=== PATIENT | female | born 1985 | race Caucasian/White ===

== ENCOUNTER 2019-12-08 00:45 | Inpatient (IN) | payer BC ==
[2019-12-08] MEDS ORDERED: CARBOPROST TROMETHAMINE 250 MCG/ML 1 ML AMP IM PRN (01:16)
[2019-12-08] MEDS ORDERED: TERBUTALINE 1 MG/ML VIAL SQ PRN (01:16)
[2019-12-08] MEDS ORDERED: LIDOCAINE 0.5% (PF) 5 MG/ML (50 ML SDV) SQ PRN (01:16)
[2019-12-08] MEDS ORDERED: METHYLERGONOVINE 0.2 MG/ML 1 ML AMP IM PRN (01:16)
[2019-12-08] MEDS ORDERED: OXYTOCIN 10 UNIT/ML 1 ML VIAL IM PRN (01:16)
[2019-12-08] MEDS: LACTATED RINGERS 1,000 ML IV SCH (01:36)
[2019-12-08 01:39] LABS: Basophils % (A) 0 %; Eosinophils # (A) 0.2 k/uL (0-0.7); Eosinophils % (A) 2 %; HCT 37.1 % (34.0-46.0); HGB 12.5 gm/dL (11.4-16.0); Lymphocytes # (A) 1.9 k/uL (1.0-4.8); Lymphocytes % (A) 21 %; MCH 31.8 pg (25.0-35.0); MCHC 33.6 g/dL (31.0-37.0); MCV 94.5 fL (80.0-100.0); Mean Platelet Volume 9.8; Monocytes # (A) 0.4 k/uL (0-1.0); Monocytes % (A) 4 %; Neutrophils # (A) 6.2 k/uL (1.3-7.7); Neutrophils % (A) 71 %; Platelet Count 198 k/uL (150-450); RBC 3.93 m/uL (3.80-5.40); RDW 12.8 % (11.5-15.5); WBC 8.8 k/uL (3.8-10.6)
[2019-12-08] MEDS: BUTORPHANOL 1 MG/ML 1 ML VIAL IV PRN ×2 (04:34→06:20)
[2019-12-08] MEDS ORDERED: SODIUM CHLORIDE 0.9% 100 ML BAG ONE (07:10)
[2019-12-08] MEDS ORDERED: ROPIVACAINE 5MG/ML 20ML VIAL ONE (07:10)
[2019-12-08] MEDS ORDERED: fentaNYL (PF) 50 MCG/ML 5 ML AMP ONE (07:10)
--- NOTE | 2019-12-08 07:21 | P.HPOB ---
History of Present Illness H&P Date: 12/08/19 Chief Complaint: Labor at 40-4/7 This is a 34-year-old 1 para 0 woman with an estimated due date of 12/04/2019 based on LMP consistent with second trimester ultrasound who presents at 40-4/7 weeks' gestation with spontaneous rupture of membranes and active labor. She has had an unremarkable . She was 4+ centimeters dilated upon initial evaluation and zabrina every 2 minutes. Laboratory data: Blood type A positive, antibody screen negative, rubella immune, VDRL nonreactive, hep B surface antigen negative, gonorrhea and clinic cultures negative, HIV negative, diabetes screening within normal limits, group B strep negative Review of Systems All systems: negative Past Medical History Past Medical History: No Reported History History of Any Multi-Drug Resistant Organisms: None Reported Past Surgical History: No Surgical Hx Reported Additional Past Surgical History / Comment(s): colposcopy, wisdom teeth Past Anesthesia/Blood Transfusion Reactions: No Reported Reaction Past Psychological History: No Psychological Hx Reported Smoking Status: Never smoker Past Alcohol Use History: None Reported Past Drug Use History: None Reported - Past Family History Mother Family Medical History: No Reported History Medications and Allergies Home Medications Medication Instructions Recorded Confirmed Type Pnv,Calcium 72/Iron/Folic Acid 1 each PO DAILY 12/08/19 12/08/19 History [ Plus Tablet] Allergies Allergy/AdvReac Type Severity Reaction Status Date / Time No Known Allergies Allergy Verified 12/08/19 00:49 Exam Vital Signs Temp Pulse Resp BP Pulse Ox 12/08/19 01:59 96.4 F L 65 16 141/93 100 12/08/19 01:07 96.4 F L 65 16 141/93 100 Intake and Output 12/07/19 12/08/19 12/08/19 22:59 06:59 14:59 Other: # Voids 1 Weight 81.647 kg Patient is currently receiving epidural anesthetic upon my initial evaluation. Per RN she has 7 cm dilated, 70% effaced vertex in the -2 station. heart tones are category 1 and she is zabrina every 2-3 minutes spontaneously. Results Result Diagrams: 12/08/19 01:25 Assessment and Plan (1) Post-dates Current Visit: Yes Status: Acute Code(s): O48.0 - POST-TERM SNOM ED Code(s): 89435117 (2) Spontaneous onset of labor Current Visit: Yes Status: Acute Code(s): XPV2941 - SNOMED Code(s): 48922792 (3) Spontaneous rupture of membranes Current Visit: Yes Status: Acute Code(s): IVQ2368 - SNOMED Code(s): 1697 82316 Plan: 34-year-old 1 admitted at 40-4/7 weeks gestation in spontaneous active labor with rupture of membranes. Group B strep negative, Rh+. Receiving epid ural anesthetic. Anticipate normal spontaneous vaginal delivery.
[2019-12-08] MEDS: OXYTOCIN 30 UNITS/500 ML NS 30 UNIT in SALINE 1 500ML.BAG IV SCH (08:16)
--- NOTE | 2019-12-08 15:36 | P.PROBDLV ---
Vaginal Delivery Note - . Vaginal Delivery Note: Findings: Male infant in the left occiput anterior position with a nuchal cord 1. Apgars of 8 at 1 minute and 9 at 5 minutes weighing 8 lbs. 3 oz., 3705 g. Intact, three-vessel cord placenta. First-degree perineal laceration, asymmetric. Bilateral periurethral abrasions. EBL approximately 150 mL's Delivery summary: This is a 34-year-old 1 para 0 woman who is admitted at 40-4/7 weeks' gestation with spontaneous rupture of membranes and active labor. She's had had an unremarkable . Following admission she was 4 cm dilated. She received Stadol analgesia and did progress to approximate 7 cm dilated. At that time she received an epidural anesthetic. Her contractions became irregular and Pitocin augmentation was initiated. She eventually reached complete cervical dilation by approximately 1310. This is 10 hours approximately after rupture of membranes. She did push for 2 hours and did have variable heart rate decelerations near the end of the second stage. Overall heart rate tracing was reassuring during the second stage. There was suspicion for macrosomia therefore at the time of the patient was placed in the León position with the hips and knees completely flexed. With additional maternal effort the head delivered from the left occiput anterior position. Nuchal cord 1 was reduced. Mild anterior rotation of the anterior shoulder facilitated rapid delivery of the anterior shoulder followed by the posterior shoulder. The rest the was then easily delivered onto the field the nose and mouth were bulb suctioned. The was placed on the maternal abdomen and the cord was eventually clamped and cut. Apgars were 8 at 1 minute and 9 at 5 minutes and weight was 8 lbs. 3 oz. The perineum was inspected and it asymmetric first-degree laceration was noted this was infused with lidocaine and was repaired with 3-0 Vicryl suture in an interrupted fashion. There were bilateral periurethral lacerations however these were not actively bleeding after pressure was held in the area. An intact, three-vessel cord placenta was expressed and the patient received Pitocin following the third stage of labor. The vagina and cervix are reinspected including the periurethral areas and no active bleeding was noted. EBL was approximately 150 mL's before QB L calculation. Both mother and were doing well post delivery in the room. All counts were correct.
[2019-12-08] MEDS ORDERED: LANOLIN CREAM 5 GM TUBE TOPICAL PRN (15:37)
[2019-12-08] MEDS ORDERED: SIMETHICONE 80 MG CHEWABLE PO PRN (15:37)
[2019-12-08] MEDS ORDERED: diphenhydrAMINE 25 MG CAP PO PRN (15:37)
[2019-12-08] MEDS ORDERED: BENZOCAINE/MENTHOL SPRAY 1 GM/SPRAY AEROSOL TOPICAL PRN (15:37)
[2019-12-08] MEDS ORDERED: diphenhydrAMINE 50 MG CAP PO PRN (15:37)
[2019-12-08] MEDS ORDERED: diphenhydrAMINE 50 MG/ML 1 ML VIAL IVP PRN ×2 (15:37)
[2019-12-08] MEDS ORDERED: ACETAMINOPHEN TAB 325 MG TAB PO PRN (15:37)
[2019-12-08] MEDS ORDERED: WITCH HAZEL 1 EACH MED..PAD TOPICAL PRN (15:37)
[2019-12-08] MEDS ORDERED: HYDROCORTISONE 2.5% RECTAL CREAM 30 GM TUBE RECTAL PRN (15:37)
[2019-12-08] MEDS ORDERED: ZOLPIDEM 5 MG TAB PO PRN (15:37)
[2019-12-08] MEDS ORDERED: OXYTOCIN 20 UNITS/1000 ML NS 1,000 ML IV SCH (15:45)
[2019-12-08] MEDS: SENNOSIDES-DOCUSATE SODIUM 1 EACH TAB PO SCH (20:37)
[2019-12-08] MEDS: IBUPROFEN 600 MG TAB PO PRN (20:37)
[2019-12-09] MEDS: LACTATED RINGERS 1,000 ML IV SCH (04:26)
[2019-12-09] MEDS: OXYTOCIN 30 UNITS/500 ML NS 30 UNIT in SALINE 1 500ML.BAG IV SCH (04:26)
[2019-12-09 05:45] LABS: Basophils % (A) 0 %; Eosinophils % (A) 0 %; HCT 29.5 % (34.0-46.0); Lymphocytes # (A) 1.5 k/uL (1.0-4.8); Lymphocytes % (A) 10 %; MCHC 33.8 g/dL (31.0-37.0); MCV 94.7 fL (80.0-100.0); Mean Platelet Volume 9.8; Monocytes # (A) 0.5 k/uL (0-1.0); Monocytes % (A) 4 %; Neutrophils # (A) 12.8 k/uL (1.3-7.7); Neutrophils % (A) 85 %; Platelet Count 142 k/uL (150-450); RBC 3.11 m/uL (3.80-5.40); RDW 13.1 % (11.5-15.5); WBC 15.1 k/uL (3.8-10.6)
[2019-12-09] MEDS: SENNOSIDES-DOCUSATE SODIUM 1 EACH TAB PO SCH ×2 (08:10→19:55)
--- NOTE | 2019-12-09 09:02 | P.DS ---
Providers Date of admission: 12/08/19 00:59 Expected date of discharge: 12/09/19 Attending physician: Zahra Power Primary care physician: Zahra Power - Discharge Diagnosis(es) (1) Post-dates Current Visit: Yes Status: Acute (2) Spontaneous onset of labor Current Visit: Yes Status: Acute (3) Spontaneous rupture of membranes Current Visit: Yes Status: Acute (4) Normal spontaneous vaginal delivery Current Visit: Yes Status: Acute (5) Nuchal cord Current Visit: Yes Status: Acute (6) Perineal laceration with delivery, first degree Current Visit: Yes Status: Acute Hospital Course: This is a 34-year-old 1 now para 1 woman who was admitted at 40-4/7 weeks gestation in spontaneous active labor with rupture of membranes. She was admitted on and received initially Stadol followed by an epidural anesthetic for pain control. She received Pitocin augmentation following placement of the epidural. She eventually reached complete cervical dilation. She had category 1 and category 2 heart tones throughout her labor. She had an unremarkable second stage of labor to deliver a liveborn male infant over a first-degree perineal laceration and bilateral periurethral lacerations. Apgars were 8 at 1 minute and 9 at 5 minutes and weight was 8 lbs. 3 oz. The patient's course was unremarkable. By day #1 she was ambulating and voiding without difficulty. Her perineum was sore but intact and her pain was well-controlled with oral pain medications. Her lochia was decreasing and she was breast-feeding. Her vital signs are stable. She was therefore discharged home with routine instructions for care and follow-up Procedures: Normal spontaneous vaginal delivery Repair of perineal laceration Patient Condition at Discharge: Good Plan - Discharge Summary New Discharge Prescriptions: No Action Pnv,Calcium 72/Iron/Folic Acid [ Plus Tablet] 1 each PO DAILY Discharge Medication List Pnv,Calcium 72/Iron/Folic Acid [ Plus Tablet] 1 each PO DAILY 12/08/19 [History] Follow up Appointment(s)/Referral(s): Zahra Power MD [Primary Care Provider] - 6 Weeks Activity/Diet/Wound Care/Special Instructions: Follow-up in the office in 6 weeks . Call with any concerning signs or symptoms including heavy vaginal bleeding, severe abdominal pain, fever greater than 101, swelling or redness of the lower extremities, foul vaginal discharge, or signs of depression. Nothing in the vagina for 6 weeks after delivery, specifically no intercourse. May use [id number] ibuprofen and/or Tylenol as directed for pain. Discharge Disposition: HOME SELF-CARE
[2019-12-09 16:02] VITALS: RESP 16
[2019-12-09] MEDS: IBUPROFEN 600 MG TAB PO PRN (17:27)
[2019-12-10] MEDS: IBUPROFEN 600 MG TAB PO PRN ×2 (00:28→12:20)
[2019-12-10] MEDS: SENNOSIDES-DOCUSATE SODIUM 1 EACH TAB PO SCH (08:24)
[2019-12-10 17:30] VITALS: BP 117/70; PULSE 89; TEMP 98.4
== END 2019-12-10 18:45 | disposition home or self-care (01) | DRG 807 ==
LOC: FBPOP 00:45 → 4FBP 00:59
PROVIDERS: ADMIT Obstetrics & Gynecology; ATTEND Obstetrics & Gynecology
PROC: 3E0R3BZ Introduction of Anesthetic Agent into Spinal Canal, Percutaneous Approach (ICD-10-PCS; principal; 2019-12-08)
PROC: 0HQ9XZZ Repair Perineum Skin, External Approach (ICD-10-PCS; principal; 2019-12-08)
PROC: 10E0XZZ Delivery of Products of Conception, External Approach (ICD-10-PCS; principal; 2019-12-08)
PROC: 00HU33Z Insertion of Infusion Device into Spinal Canal, Percutaneous Approach (ICD-10-PCS; principal; 2019-12-08)
DX: O69.81X0 Labor and delivery complicated by cord around neck, without compression, not applicable or unspecified (principal); Z37.0 Single live birth; O48.0 Post-term pregnancy; O71.82 Other specified trauma to perineum and vulva; O70.0 First degree perineal laceration during delivery; Z3A.40 40 weeks gestation of pregnancy
CPT/HCPCS: 59025; 85025; 86850; 86900; 86901; 99213

== ENCOUNTER 2022-06-22 20:13 | Outpatient (CLI) | payer BC ==
[2022-06-22 20:42] LABS: Basophils % (A) 0 %; Eosinophils # (A) 0.1 k/uL (0-0.7); Eosinophils % (A) 1 %; HCT 33.1 % (34.0-46.0); HGB 11.6 gm/dL (11.4-16.0); Lymphocytes # (A) 1.8 k/uL (1.0-4.8); Lymphocytes % (A) 25 %; MCH 31.8 pg (25.0-35.0); MCV 90.8 fL (80.0-100.0); Monocytes # (A) 0.4 k/uL (0-1.0); Monocytes % (A) 5 %; Neutrophils # (A) 4.7 k/uL (1.3-7.7); Neutrophils % (A) 67 %; Platelet Count 185 k/uL (150-450); RBC 3.64 m/uL (3.80-5.40); RDW 12.7 % (11.5-15.5); WBC 7.1 k/uL (3.8-10.6)
--- NOTE | 2022-06-22 21:30 | US ---
EXAMINATION TYPE: US OB >= 14 wk fetus DATE OF EXAM: 06/22/2022 COMPARISON: None CLINICAL HISTORY: Vaginal bleeding TECHNIQUE: Transabdominal (TA) GESTATIONAL AGE / DATING Physician Established: (26 weeks/6 days) EDC: 09/22/2022 Dates by Current Scan: (27 weeks/4 days) EDC: 09/17/2022 Beta HCG (if available): Not available at this time SURVEY IUP: Single PLACENTA: Left posterior PREVIA: No Previa MARIA ESTHER: 14.8 cm Normal CERVICAL LENGTH (transabdominal: norm > 3.0cm): 3.5 cm BIOMETRY PRESENTATION: Vertex BPD: 7.2 cm 28 weeks / 6 days HC: 26.0 cm 28 weeks / 2 days AC: 20.8 cm 25 weeks / 3 days FL: 5.2 cm 27 weeks / 4 days ESTIMATED WEIGHT IN GRAMS: 960 grams ESTIMATED WEIGHT IN LBS/OZ: 2 lbs. 2 oz. WEIGHT PERCENTAGE BASED ON ESTABLISHED DATES: 29% HC/AC: 1.3 Abnormal FL/AC: 25% Abnormal HEART RATE: 136 bpm RHYTHM: Normal IMPRESSION: Amniotic fluid appears adequate. No complicated process seen.
[2022-06-22 22:37] VITALS: BP 124/75; PULSE 81; RESP 17; TEMP 97.9
--- NOTE | 2022-07-04 20:41 | P.MSEPDOC ---
Presenting Problems - Arrival Data Date of Arrival on Unit: 06/22/22 Time of Arrival on Unit: 20:13 Mode of Transport: Ambulatory - Complaint OB-Reason for Admission/Chief Complaint: Vaginal Bleeding Comment: Pt presents to triage with c/o bright red bleeding when she wiped with toilet paper and some bleeding in the toilet around an hour ago Medical History - Information : 2 Para: 1 Term: 1 : 0 Abortions: Spontaneous or Elective: 0 Number of Living Children: 1 - Gestational Age Gestational Age by MOUNIKA (wks/days): 26 Weeks and 6 Days Review of Systems - Review of Systems Constitutional: No problems Breast: No problems ENT: No problems Cardiovascular: No problems Respiratory: No problems Gastrointestinal: No problems Genitourinary: No problems Musculoskeletal: No problems Neurological: No problems Skin: No problems Vital Signs - Temperature Temperature: 97.9 F Temperature Source: Temporal Artery Scan - Pulse Pulse Oximetery Pulse Rate: 81 Pulse Assessment Method: Pulse Oximetry - Respirations Respiratory Rate: 17 Oxygen Delivery Method: Room Air O2 Sat by Pulse Oximetry: 99 - Blood Pressure Right Arm Blood Pressure: 124/75 Blood Pressure Mean: 91 Blood Pressure Source: Automatic Cuff Medical Screen Scoring - Assessment - Baby A Baseline FHR: 135 Heart Rate - NICHD Category: Category I (Normal) NST: Reactive Physician Notification - Physician Notified Physician Notified Date: 06/22/22 Physician Notified Time: 21:36 Physician: Kamala Haji New Order Received: Yes - Notification Comment Comment: RN spoke with Dr. Haji regarding triage pt. Reported on maternal vital signs WNL, category 1 reactive NST, no contx, CBC results, speculum exam performed with no active bleeding noted, and ultrasound results. Orders received to discharge pt home with instructions to follow up with Dr. Power next week. Maternal Triage Index - Maternal Triage Index Presenting for scheduled procedure w/no complaint: No - Stat/Priority 1 Stat Priority 1: No - Urgent/Priority 2 Urgent Priority 2: Yes Provider Notified: Kamala Haji Provider Notified Time: 20:15 Criteria Met for Priority 2: 26 6/7 weeks pt presents to triage with c/o bright red bleeding when she wiped with toilet paper and some bleeding in the toilet around an hour ago Disposition - Disposition OB Disposition: Discharge to home, Written follow up instructions reviewed Discharge Date: 06/22/22 Discharge Time: 21:49 I agree with the RN Medical Screening Exam: Yes Physician's MSE Comment: I have neither seen nor examined the patient. Case reviewed; plan agreed upon as documented in EMR&OBIX.: Yes Diagnosis: UNSP TRACT INFECTION IN , SECOND TRIMESTER
== END 2022-06-22 21:49 | disposition home or self-care (01) ==
LOC: FBPOP 20:13
PROVIDERS: ATTEND Obstetrics & Gynecology
DX: O26.892 Other specified pregnancy related conditions, second trimester (principal); Z3A.26 26 weeks gestation of pregnancy; O23.42 Unspecified infection of urinary tract in pregnancy, second trimester
CPT/HCPCS: 36415; 59025; 76805; 85025; 99215